=== PATIENT | female | born 1945 | race Caucasian/White ===

== ENCOUNTER 2017-12-03 18:39 | Emergency (ER) | payer MEDICARE ==
[~2017-12-03] VITALS: Ht 322.6 cm; Wt 76.2 kg
[~2017-12-03 18:39] MED LIST: AMBIEN5 MG PO; ARTHROTEC EC 71 EAC1; CALCIUM ACETAT667 M1 PO; FERROUS SULFAT324 MG PO; GABAPENTIN300 MG PO; LEXAPRO10 MG PO; MISOPROSTOL100 MCG PO; MORPHINE SULFAT30 M2 PO; NORCO 10-325 T1 EACH PO; OMEPRAZOLE40 MG PO; OXYCODONE HCL20 M1 PO; POTASSIUM CHLO10 ME1 PO; VITAMIN C1000 MG PO; VITAMIN D1000 UNI1 PO; XELODA500 MG PO
== END 2017-12-03 21:10 | disposition short-term general hospital (02) ==
LOC: ER 18:39
DX: R21 Rash and other nonspecific skin eruption (principal)

== ENCOUNTER 2017-12-03 21:32 | Emergency (ER) | payer MEDICARE ==
[~2017-12-03] VITALS: Ht 170.2 cm; Wt 76.2 kg
[2017-12-03] MEDS ORDERED: ONDANSETRON HCL INJ 2 MG/ML VIAL IV ONE (23:00)
[2017-12-03] MEDS ORDERED: VANCOMYCIN HCL 1 GM VIAL IV ONE (23:00)
[2017-12-03] MEDS ORDERED: CLINDAMYCIN PHOS 600 MG/ 4 ML VIAL IV ONE (23:00)
[2017-12-04] MEDS ORDERED: ONDANSETRON HCL INJ 2 MG/ML VIAL IV PRN (01:15)
[2017-12-04] MEDS ORDERED: CLINDAMYCIN 600MG/D5W 50ML 50 ML IV SCH (08:30)
[2017-12-04] MEDS ORDERED: VANCOMYCIN 1GM/NS 250 ML 250 ML IV SCH (11:30)
[2017-12-04 12:14] VITALS: BP 118/76
== END 2017-12-04 11:00 | disposition left against medical advice (07) ==
LOC: FSED 21:32
DX: L03.114 Cellulitis of left upper limb (principal); C41.9 Malignant neoplasm of bone and articular cartilage, unspecified; Z79.899 Other long term (current) drug therapy
CPT/HCPCS: 80053; 85025; 96374; 99283; J2405 ×2; J3370 ×2

== ENCOUNTER 2018-01-01 11:22 | Emergency (ER) | payer MEDICARE ==
[~2018-01-01] VITALS: Ht 170.2 cm; Wt 77.1 kg
--- OUTSIDE RECORDS SUMMARY | 2018-01-01 11:24 | XMS REPORT ---
Author Author [facility] Address Unknown Phone Unavailable Care Team Providers Care Physical Therapist Name Role Phone JANEE TORRES Unavailable Unavailable Problems This patient has no known problems. Allergies, Adverse Reactions, Alerts This patient has no known allergies or adverse reactions. Medications This patient has no known medications. Results Test Description Test Time Test Comments Text Results Atomic Results Result Comments CHEST SINGLE (PORTABLE) [place] [address] Patient Name: BONNY SCHREIBER MR #: [id number] : 1945 Age/Sex: 72/F Req #: [id number] [facility] Physician: JANEE TORRES MD Ordered by: OLAF VELASQUEZ MD Report #: [id number] Location: MED/SURG2 Room/Bed: [facility] Procedure: [id number] DX/CHEST SINGLE (PORTABLE) Exam Date: 07/28/17 Exam Time: 0545 REPORT STATUS: Signed EXAM: CHEST SINGLE (PORTABLE), AP 1 view DATE: 07/28/2017 5: 00 AM Time stamp on exam: 0610 hours INDICATION: CHF COMPARISON: AP view of the chest July 25, 2017 FINDINGS: LINES/TUBES: Stable position of right internal jugular vein chest port and central line. LUNGS: Slight decreased vascular congestion. Bibasilar atelectasis. PLEURA: No effusions or pneumothorax. HEART AND MEDIASTINUM: Stable mild cardiac enlargement BONES AND SOFT TISSUES: No acute findings. IMPRESSION: Slight decreased basilar congestion. Persistent bibasilar atelectasis. Signed by: Dr. Taya Mullen M.D. on 07/28/2017 6:58 AM Dictated By: TAYA MULLEN MD 7 Transcribed By: PANKAJ on 07/28/17657 COPY TO: OLAF VELASQUEZ MD CT ABDOMEN/PELVIS WO [place] [address] Patient Name: BONNY SCHREIBER MR #: [id number] : 1945 Age/Sex: 72/F Req #: [id number] Adm Physician: JANEE TORRES MD Ordered by: MIKI RIOS MD Report #: [id number] Location: MED/SURG2 Room/Bed: [facility] __ Procedure: [id number] CT/CT ABDOMEN/PELVIS WO Exam Date: Exam Time: REPORT STATUS: Signed PROCEDURE : CT ABDOMEN AND PELVIS WITHOUT CONTRAST COMPARISON: MRI lumbar spine . INDICATIONS: HYDRONEPHROSIS ON MRI; history of metastatic breast cancer TECHNIQUE: Axial CT images through the abdomen and pelvis were obtained without IV contrast. Coronal and sagittal reformations were created. FINDINGS: Lung bases: Posterior layering pleural effusions measure 3 cm on the right 2.6 cm on the left with atelectasis of the overlying lung. There is a tiny pericardial effusion. A small hiatal hernia is present. Liver: Normal attenuation without mass. The right lobe measures 20 cm in length. Spleen: Mildly enlarged. No evidence of mass. Biliary: The gallbladder is absent. There is no biliary ductal dilatation. Pancreas: Mildly atrophic without mass or ductal dilatation. Adrenal Glands: The right adrenal gland is mildly thickened. The left adrenal gland exhibits nodular thickening. Underlying adenomata cannot be excluded Kidneys: Right kidney: No hydronephrosis. A tiny calculus in the upper pole could be in the collecting system or vascular. No renal edema or perinephric inflammation. No cortical mass. Left kidney: No hydronephrosis. Fat attenuating lesion in the anterior interpolar cortex measures 9 mm suggestive of an angiomyolipoma. The collecting system is nondilated. No perinephric inflammation. Vasculature: The aorta is mildly ectatic but not dilated. Diffuse atherosclerotic calcifications are present throughout all the arterial structures. Stomach: There are postoperative changes of the stomach suggestive of gastric bypass. The excluded stomach is distended with fluid but is nondilated. No free fluid or fluid collection. Bowel: Small bowel is normal in diameter with normal wall thickness. The large bowel distended with air but is not dilated. No mural thickening or pericolonic inflammation. The cecum is low- lying in the pelvis. The appendix is not visualized. Peritoneum/ Retroperitoneum: Small amount of pelvic ascites. No loculated fluid collection. Bladder: Collapsed around a Gonzalez catheter. No ureteral dilatation. Reproductive organs: The uterus is absent. There are no adnexal masses. Musculoskeletal: Diffuse osseous metastases are stable. There are healing pathologic fractures of multiple right and left-sided ribs. Bilateral pedicle screws and vertical stabilizing bars extending from L2-S1 laminectomy. Artificial discs at L2-3, L3-4, L4-5 are stable. The hardware is intact without evidence of lucency to suggest loosening. T11 pathologic compression deformity is stable. There is height loss of the L3, L4, L5 vertebral body, similar to MRI. Soft tissues: Mild diffuse subcutaneous edema. A left anterior abdominal wall hernia contains fat and a small amount of fluid, lateral to the rectus abdominis with an aperture of 13 mm. No evidence of hernia elsewhere. CONCLUSION: 1. No evidence of hydronephrosis or hydroureter. Hydroureteronephrosis identified on MRI may have been secondary to urinary bladder dilatation. 2. Bilateral pleural effusions and small amount of pelvic ascites. Mild subcutaneous edema. 3. Mild splenomegaly. 4. No bowel obstruction or dilatation. 5. Stable osseous metastases with pathologic fractures as described above. Dictated by: Denny Holloway M.D. on 07/25/2017 at 16:29 Electronically approved by: Denny Holloway M.D. on 07/25/2017 at 16:29 Dictated By: DENNY HOLLOWAY MD 28 Transcribed By: CRYSTAL on 07/25/171628 COPY TO: MIKI RIOS MD CHEST SINGLE (PORTABLE) [place] [address] Patient Name: BONNY SCHREIBER MR #: [id number] : 1945 Age/Sex: 72/F Req #: [id number] Adm Physician: JANEE TORRES MD Ordered by: OLAF VELASQUEZ MD Report #: [id number] Location: MED/SURG2 Room/Bed: [facility] Procedure: [id number] DX/CHEST SINGLE (PORTABLE) Exam Date: 07/25/17 Exam Time: 0535 REPORT STATUS: Signed EXAM: CHEST SINGLE (PORTABLE), AP 1 view DATE: 07/25/2017 5: 00 AM Time stamp on exam: 0528 hours INDICATION: CHF COMPARISON: AP view of the chest July 24, 2017 FINDINGS: LINES/TUBES: Stable positions of right internal jugular vein central line and chest port. LUNGS: Vascular congestion and bibasilar atelectasis. PLEURA: Possible small bilateral pleural effusions. HEART AND MEDIASTINUM: Stable mild enlargement of the cardiac mediastinal silhouette and central vasculature. BONES AND SOFT TISSUES: Surgical clips left axilla. Bilateral rib fractures. IMPRESSION: Vascular congestion and bibasilar atelectasis. Signed by: Dr. Taya Mullen M.D. on 07/25/2017 6:52 AM Dictated By: TAYA MULLEN MD 1 Transcribed By: PANKAJ on 07/25/17651 COPY TO: OLAF VELASQUEZ MD US EXTREMITY RAYGOZA NON-VAS [place] [address] Patient Name: BONNY SCHREIBER MR #: [id number] : 1945 Age/Sex: 72/F Req #: [id number] Adm Physician: JANEE TORRES MD Ordered by: EMMA FLOWER MD Report #: [id number] Location: MED/SURG2 Room/Bed: [facility] Procedure: [id number] US/US EXTREMITY RAYGOZA NON-VAS Exam Date: Exam Time: REPORT STATUS: Signed PROCEDURE: EXTREMITY ULTRASOUND COMPARISON: None. INDICATIONS: R/O Abscess TECHNIQUE: Focused sonographic evaluation was performed of the left upper extremity, most concentrated in the left forearm. Nonvascular evaluation. FINDINGS: Moderate amount of edema is noted throughout the left upper extremity. No focal drainable fluid collection. No increased vascularity. No solid mass. CONCLUSION: Left upper extremity edema. No focal drainable fluid collection. Dictated by: Maricel Thorne M.D. on 07/25/2017 at 13:20 Electronically approved by: Maricel Thorne M.D. on 07/25/2017 at 13:20 Dictated By : MARICEL THORNE MD 19 Transcribed By: CRYSTAL on 07/25/171319 COPY TO: EMMA FLOWER MD US ABDOMEN COMPLETE [place] [address] Patient Name: BONNY SCHREIBER MR #: [id number] : 1945 Age/Sex: 72/F Req #: [id number] [facility] Physician: JANEE TORRES MD Ordered by: OLAF VELASQUEZ MD Report #: [id number] Location: [facility] Room/Bed: [facility] Procedure: [id number] US/US ABDOMEN COMPLETE Exam Date: 07/24/17 Exam Time: 1910 REPORT STATUS: Signed ABDOMINAL ULTRASOUND, July 24, 2017 Clinical history: Elevated LFTs. Hydronephrosis on magnetic resonance imaging. Technique: Grayscale and color Doppler ultrasound abdomen. Comparison: MRI lumbar spine July 23, 2017 Findings: The abdominal aorta and pancreas are secured. Right liver span 13 cm. Normal parenchymal echogenicity with a smooth liver margin. Portal vein diameter 1.4 cm; normal flow direction. Cholecystectomy. Common bile duct diameter 7 mm. No intrahepatic bile duct dilation. Right kidney: 11 x 4.9 x 5.1 cm Left kidney: 10.7 x 5.2 x 4.7 cm The left kidney contains a 0.8 x 0.9 x 0.9 cm hyperechoic nodule at the anterior margin without shadowing. Kidneys are otherwise unremarkable. Distended urinary bladder containing 509 mL urine. Splenic length 12.6 cm. No ascites. Small pleural effusions bilaterally. Impression: No hydronephrosis. 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 Less likely, nonobstructive stone. This report was generated with voice-recognition technology. Errors in coordinate measuring machine technician can occur. Please interpret accordingly and contact a radiologist if there are any questions regarding the report. Signed by: Dr. Tutu Ontiveros M.D. on 07/24/2017 8:56 PM Dictated By: TUTU ONTIVEROS MD 55 Transcribed By: PANKAJ on 07/24/172055 COPY TO: OLAF VELASQUEZ MD CHEST SINGLE (PORTABLE) [place] [address] Patient Name: BONNY SCHREIBER MR #: [id number] : 1945 Age/Sex: 72/F Req #: [id number] Adm Physician: KLAUS MCKEON MD Ordered by: OLAF VELASQUEZ MD Report #: [id number] Location: ICU Room/Bed: ICU [facility] Procedure: [id number] DX/CHEST SINGLE (PORTABLE) Exam Date: 07/24/17 Exam Time: 0550 REPORT STATUS: Signed EXAM: CHEST SINGLE (PORTABLE), AP 1 view DATE: 07/24/2017 5:00 AM Time stamp on exam: 0539 hours INDICATION: Shortness of breath, pleural opacities COMPARISON: AP view of the chest July 23, 2017 FINDINGS: LINES/TUBES: Stable position of right internal jugular vein central line and chest port. LUNGS: Stable bibasilar reticulonodular changes. PLEURA : No effusions or pneumothorax. HEART AND MEDIASTINUM: Normal size and contour. BONES AND SOFT TISSUES: Bilateral healing rib fractures. IMPRESSION: No significant interval change in appearance of the chest. Signed by: Dr. Taya Mullen M.D. on 07/24/2017 6:55 AM Dictated By: TAYA MULLEN MD 4 COPY TO: OLAF VELASQUEZ MD MRI SPINE LUMBAR WOW [place] [address] [place] [address] Patient Name: BONNY SCHREIBER MR #: [id number] : 1945 Age/Sex: 72/F Req #: [id number] Adm Physician: KLAUS MCKEON MD Ordered by: EMMA FLOWER MD Report #: [id number] Location: ICU Room/Bed: ICU [facility] __ Procedure: [id number] MRI/MRI SPINE LUMBAR WOW Exam Date: 07/23/17 Exam Time: 1230 REPORT STATUS: Signed Exam: Cervical, thoracic and lumbar spine MRIs without and with IV contrast History: 72-year-old female with history of breast cancer metastatic to the thoracic spine currently septic. Comparison studies: Lumbar spine MRI . Technique: Cervical spine: Pre-contrast Sagittal T2, T1 and sagittal inversion recovery, axial T1. Postcontrast axial and sagittal T1 and, axial T2. Thoracic spine: Precontrast sagittal axial T2, sagittal T1 FLAIR, sagittal STIR, coronal T2 and postcontrast sagittal axial T1 FS. Lumbar spine: Precontrast sagittal T2, sagittal and axial T1, axial oblique proton density and sagittal STIR. Post contrast sagittal and axial T1 FS and axial T2. Intravenous contrast: 10 cc of Gadavist. Findings: Limitations: Exams are limited by artifacts related to patient motion. The lumbar spine is limited by artifacts related to susceptibility artifact from metallic posterior instrumentation. Alignment: Straightened cervical curvature. Minimal thoracic kyphosis at T11 due to pathologic fracture described below. Mild hyperlordotic lumbar curvature. Thoracolumbar scoliosis , convex to the left with apex at T9-T10 with lumbar curvature convex to the right with apex at L3-L4. Cervicomedullary junction: No abnormalities. Patent foramen magnum. Soft tissues: No T2 hyperintense inflammatory changes. Paraspinal muscles: No signal abnormalities. Well-preserved. No atrophic changes Spinal cord: Normal in morphology without gross signal abnormality from the cervical medullary junction to the tip of the conus is at approximately L1.. Cauda equina: No gross masses or arachnoiditis. Vertebrae: Multiple T2/STIR hyperintense, T1 hypointense, enhancing metastatic lesions scattered throughout the vertebral bodies and posterior elements of the thoracic and lumbar spine, in the posterior C7 vertebral body as well as scattered throughout the sacrum and included iliac bones. No associated soft tissue epidural disease. Multiple fractures throughout the thoracic and lumbar spine, many of which are pathologic. Compression fracture at T5 with depression of the superior and inferior endplates results in approximately 30% height loss. A T8 compression fracture results in approximately 50% height loss. A T11 compression fracture results in approximately 40-60% height loss. An L2 superior endplate compression fracture results in approximately 30% height loss. An L3 superior endplate compression fracture results in up to 70% height loss centrally. Depression deformities at L4 and at L5 result in mild height loss. Postsurgical changes: Instrumented posterior lateral instrumented fusion and decompressive laminectomies from L2 to S1 with bilateral rods fixated via transpedicular screws from L2 to L5 and transsacral screws at S1 (cannot further evaluate hardware integrity on this exam). There are discectomy changes with interbody cage prostheses in place from L2 to L5. These changes are new from the previous lumbar spine MRI. Degenerative changes: Cervical spine: C2-C3: Disc bulge does not result in significant canal stenosis. Mild right foraminal stenosis due to uncovertebral facet arthrosis. C3-C4: Patent canal. Mild left foraminal stenosis due to uncovertebral and facet arthrosis patent canal and right foramen. C4-C5: Small disc bulge does not result in significant canal stenosis. No significant foraminal stenosis. C5-C6: Small disc bulge does not result in significant canal stenosis. Mild right foraminal stenosis due to uncovertebral arthrosis. C6-C7: Moderately degenerated disc. Disc osteophyte complex asymmetric to the left and uncovertebral arthrosis result in moderate canal and left foraminal stenosis. Mild right foraminal stenosis due to uncovertebral arthrosis. C7-T1: Disc bulge does not result in significant canal stenosis. No significant foraminal stenosis. Thoracic spine: Multilevel disc degeneration, worse/moderate from T8 through T11. Canal stenosis from T8 through T11 due to disc osteophyte complexes minimal retropulsion of the inferior T8 endplate is mild at T8-T9, moderate at T9-T10 and severe at T10-T11. Minimal retropulsion of the inferior T10 endplate with small left central disc protrusion does not result in significant canal stenosis. Foraminal stenosis on the right T8 through T11 due to disc osteophyte complexes is moderate at T8-T9 and at T10- T11 and mild at T9-T10. Lumbar spine: Evaluation is limited by artifact from metallic fixation hardware. L1-L2: Disc osteophyte complex results in mild canal stenosis and mild right foraminal stenosis. L2-L3: Disc osteophyte complex, thickened ligamenta flava and facet arthrosis result in mild canal and bilateral frontal stenosis. L3-L4: Disc osteophyte complex and facet arthrosis result in severe left and mild right foraminal stenosis. No canal stenosis L4-L5: Residual osteophyte complex and facet arthrosis result in severe left and moderate right foraminal stenosis. No canal stenosis. L5-S1: Disc osteophyte complex and facet arthrosis result in severe bilateral foraminal stenosis. Incidental findings: Moderate bilateral basilar atelectasis. Mild bilateral hydronephrosis with moderate dilatation of the bilateral ureters. IMPRESSION: Limited exam as described. In spite of limitations: Cervical, thoracic and lumbar spines: 1. No discitis-osteomyelitis. 2. Scattered osseous metastases throughout the cervical, thoracic, lumbar spine, sacrum and iliac bones. 3. Multiple compression fractures throughout the thoracic and lumbar spine, many of which are pathologic, most pronounced at T8 (50% height loss), T11 (40-60% height loss) and at L3 (70% height loss). 4. Moderate disc degeneration with mild canal stenosis and moderate left foraminal stenosis at C6-C7. 5. Canal stenosis and right foraminal stenosis from T8 through T11 due to disc osteophyte complexes and minimal retropulsion the inferior T8 endplate. Canal stenosis is severe at T10-T11. 6. Lumbar surgical changes, new since 02/2009 include: PLIF and decompression from L2 to S1 and discectomies from L2 to L5. 7. Mild degenerative canal stenosis at L1-L2 and varying degrees of moderate to severe degenerative foraminal stenosis from L3 to S1. 8. Bibasilar atelectasis with bilateral hydroureteronephrosis. Signed by: Dr. Spenser Odonnell M.D. on 07/24/2017 9:26 AM Dictated By: SPENSER ODONNELL MD 5 Transcribed By: PANKAJ on 07/24/17925 COPY TO: EMMA FLOWER MD MRI SPINE THORACIC WOW [place] [address] Patient Name: BONNY SCHREIBER MR #: [id number] : 1945 Age/Sex: 72/F Req #: [id number] Adm Physician: KLAUS MCKEON MD Ordered by: EMMA FLOWER MD Report #: [id number] Location: ICU Room/Bed: ICU [facility] __ Procedure: [id number] MRI/MRI SPINE THORACIC WOW Exam Date : 07/23/17 Exam Time: 1230 REPORT STATUS: Signed Exam: Cervical, thoracic and lumbar spine MRIs without and with IV contrast History: 72-year-old female with history of breast cancer metastatic to the thoracic spine currently septic. Comparison studies: Lumbar spine MRI 03/07/2009. Technique: Cervical spine: Pre-contrast Sagittal T2, T1 and sagittal inversion recovery, axial T1. Postcontrast axial and sagittal T1 and, axial T2. Thoracic spine: Precontrast sagittal axial T2, sagittal T1 FLAIR, sagittal STIR, coronal T2 and postcontrast sagittal axial T1 FS. Lumbar spine: Precontrast sagittal T2, sagittal and axial T1, axial oblique proton density and sagittal STIR. Post contrast sagittal and axial T1 FS and axial T2. Intravenous contrast: 10 cc of Gadavist. Findings: Limitations: Exams are limited by artifacts related to patient motion. The lumbar spine is limited by artifacts related to susceptibility artifact from metallic posterior instrumentation. Alignment: Straightened cervical curvature. Minimal thoracic kyphosis at T11 due to pathologic fracture described below. Mild hyperlordotic lumbar curvature. Thoracolumbar scoliosis , convex to the left with apex at T9-T10 with lumbar curvature convex to the right with apex at L3-L4. Cervicomedullary junction: No abnormalities. Patent foramen magnum. Soft tissues: No T2 hyperintense inflammatory changes. Paraspinal muscles: No signal abnormalities. Well-preserved. No atrophic changes Spinal cord: Normal in morphology without gross signal abnormality from the cervical medullary junction to the tip of the conus is at approximately L1.. Cauda equina: No gross masses or arachnoiditis. Vertebrae: Multiple T2/STIR hyperintense, T1 hypointense, enhancing metastatic lesions scattered throughout the vertebral bodies and posterior elements of the thoracic and lumbar spine, in the posterior C7 vertebral body as well as scattered throughout the sacrum and included iliac bones. No associated soft tissue epidural disease. Multiple fractures throughout the thoracic and lumbar spine, many of which are pathologic. Compression fracture at T5 with depression of the superior and inferior endplates results in approximately 30% height loss. A T8 compression fracture results in approximately 50% height loss. A T11 compression fracture results in approximately 40-60% height loss. An L2 superior endplate compression fracture results in approximately 30% height loss. An L3 superior endplate compression fracture results in up to 70% height loss centrally. Depression deformities at L4 and at L5 result in mild height loss. Postsurgical changes: Instrumented posterior lateral instrumented fusion and decompressive laminectomies from L2 to S1 with bilateral rods fixated via transpedicular screws from L2 to L5 and transsacral screws at S1 (cannot further evaluate hardware integrity on this exam). There are discectomy changes with interbody cage prostheses in place from L2 to L5. These changes are new from the previous lumbar spine MRI. Degenerative changes: Cervical spine: C2-C3: Disc bulge does not result in significant canal stenosis. Mild right foraminal stenosis due to uncovertebral facet arthrosis. C3-C4: Patent canal. Mild left foraminal stenosis due to uncovertebral and facet arthrosis patent canal and right foramen. C4-C5: Small disc bulge does not result in significant canal stenosis. No significant foraminal stenosis. C5-C6: Small disc bulge does not result in significant canal stenosis. Mild right foraminal stenosis due to uncovertebral arthrosis. C6-C7: Moderately degenerated disc. Disc osteophyte complex asymmetric to the left and uncovertebral arthrosis result in moderate canal and left foraminal stenosis. Mild right foraminal stenosis due to uncovertebral arthrosis. C7-T1: Disc bulge does not result in significant canal stenosis. No significant foraminal stenosis. Thoracic spine: Multilevel disc degeneration, worse/moderate from T8 through T11. Canal stenosis from T8 through T11 due to disc osteophyte complexes minimal retropulsion of the inferior T8 endplate is mild at T8-T9, moderate at T9-T10 and severe at T10-T11. Minimal retropulsion of the inferior T10 endplate with small left central disc protrusion does not result in significant canal stenosis. Foraminal stenosis on the right T8 through T11 due to disc osteophyte complexes is moderate at T8-T9 and at T10- T11 and mild at T9-T10. Lumbar spine: Evaluation is limited by artifact from metallic fixation hardware. L1-L2: Disc osteophyte complex results in mild canal stenosis and mild right foraminal stenosis. L2-L3: Disc osteophyte complex, thickened ligamenta flava and facet arthrosis result in mild canal and bilateral frontal stenosis. L3-L4: Disc osteophyte complex and facet arthrosis result in severe left and mild right foraminal stenosis. No canal stenosis L4-L5: Residual osteophyte complex and facet arthrosis result in severe left and moderate right foraminal stenosis. No canal stenosis. L5-S1: Disc osteophyte complex and facet arthrosis result in severe bilateral foraminal stenosis. Incidental findings: Moderate bilateral basilar atelectasis. Mild bilateral hydronephrosis with moderate dilatation of the bilateral ureters. IMPRESSION: Limited exam as described. In spite of limitations: Cervical, thoracic and lumbar spines: 1. No discitis-osteomyelitis. 2. Scattered osseous metastases throughout the cervical, thoracic, lumbar spine, sacrum and iliac bones. 3. Multiple compression fractures throughout the thoracic and lumbar spine, many of which are pathologic, most pronounced at T8 (50% height loss), T11 (40-60% height loss) and at L3 (70% height loss). 4. Moderate disc degeneration with mild canal stenosis and moderate left foraminal stenosis at C6-C7. 5. Canal stenosis and right foraminal stenosis from T8 through T11 due to disc osteophyte complexes and minimal retropulsion the inferior T8 endplate. Canal stenosis is severe at T10-T11. 6. Lumbar surgical changes, new since 02/2009 include: PLIF and decompression from L2 to S1 and discectomies from L2 to L5. 7. Mild degenerative canal stenosis at L1-L2 and varying degrees of moderate to severe degenerative foraminal stenosis from L3 to S1. 8. Bibasilar atelectasis with bilateral hydroureteronephrosis. Signed by: Dr. Spenser Odonnell M.D. on 07/24/2017 9:26 AM Dictated By: SPENSER ODONNELL MD 5 Transcribed By: PANKAJ on 07/24/17925 COPY TO: EMMA FLOWER MD MRI SPINE CERVICAL WOW [place] [address] Patient Name: BONNY SCHREIBER MR #: [id number] : 1945 Age/Sex: 72/F Req #: [id number] Adm Physician: KLAUS MCKEON MD Ordered by: EMMA FLOWER MD Report #: [id number] Location: ICU Room/Bed: ICU [facility] __ Procedure: [id number] MRI/MRI SPINE CERVICAL WOW Exam Date : 07/23/17 Exam Time: 1230 REPORT STATUS: Signed Exam: Cervical, thoracic and lumbar spine MRIs without and with IV contrast History: 72-year-old female with history of breast cancer metastatic to the thoracic spine currently septic. Comparison studies: Lumbar spine MRI 03/07/2009. Technique: Cervical spine: Pre-contrast Sagittal T2, T1 and sagittal inversion recovery, axial T1. Postcontrast axial and sagittal T1 and, axial T2. Thoracic spine: Precontrast sagittal axial T2, sagittal T1 FLAIR, sagittal STIR, coronal T2 and postcontrast sagittal axial T1 FS. Lumbar spine: Precontrast sagittal T2, sagittal and axial T1, axial oblique proton density and sagittal STIR. Post contrast sagittal and axial T1 FS and axial T2. Intravenous contrast: 10 cc of Gadavist. Findings: Limitations: Exams are limited by artifacts related to patient motion. The lumbar spine is limited by artifacts related to susceptibility artifact from metallic posterior instrumentation. Alignment: Straightened cervical curvature. Minimal thoracic kyphosis at T11 due to pathologic fracture described below. Mild hyperlordotic lumbar curvature. Thoracolumbar scoliosis , convex to the left with apex at T9-T10 with lumbar curvature convex to the right with apex at L3-L4. Cervicomedullary junction: No abnormalities. Patent foramen magnum. Soft tissues: No T2 hyperintense inflammatory changes. Paraspinal muscles: No signal abnormalities. Well-preserved. No atrophic changes Spinal cord: Normal in morphology without gross signal abnormality from the cervical medullary junction to the tip of the conus is at approximately L1.. Cauda equina: No gross masses or arachnoiditis. Vertebrae: Multiple T2/STIR hyperintense, T1 hypointense, enhancing metastatic lesions scattered throughout the vertebral bodies and posterior elements of the thoracic and lumbar spine, in the posterior C7 vertebral body as well as scattered throughout the sacrum and included iliac bones. No associated soft tissue epidural disease. Multiple fractures throughout the thoracic and lumbar spine, many of which are pathologic. Compression fracture at T5 with depression of the superior and inferior endplates results in approximately 30% height loss. A T8 compression fracture results in approximately 50% height loss. A T11 compression fracture results in approximately 40-60% height loss. An L2 superior endplate compression fracture results in approximately 30% height loss. An L3 superior endplate compression fracture results in up to 70% height loss centrally. Depression deformities at L4 and at L5 result in mild height loss. Postsurgical changes: Instrumented posterior lateral instrumented fusion and decompressive laminectomies from L2 to S1 with bilateral rods fixated via transpedicular screws from L2 to L5 and transsacral screws at S1 (cannot further evaluate hardware integrity on this exam). There are discectomy changes with interbody cage prostheses in place from L2 to L5. These changes are new from the previous lumbar spine MRI. Degenerative changes: Cervical spine: C2-C3: Disc bulge does not result in significant canal stenosis. Mild right foraminal stenosis due to uncovertebral facet arthrosis. C3-C4: Patent canal. Mild left foraminal stenosis due to uncovertebral and facet arthrosis patent canal and right foramen. C4-C5: Small disc bulge does not result in significant canal stenosis. No significant foraminal stenosis. C5-C6: Small disc bulge does not result in significant canal stenosis. Mild right foraminal stenosis due to uncovertebral arthrosis. C6-C7: Moderately degenerated disc. Disc osteophyte complex asymmetric to the left and uncovertebral arthrosis result in moderate canal and left foraminal stenosis. Mild right foraminal stenosis due to uncovertebral arthrosis. C7-T1: Disc bulge does not result in significant canal stenosis. No significant foraminal stenosis. Thoracic spine: Multilevel disc degeneration, worse/moderate from T8 through T11. Canal stenosis from T8 through T11 due to disc osteophyte complexes minimal retropulsion of the inferior T8 endplate is mild at T8-T9, moderate at T9-T10 and severe at T10-T11. Minimal retropulsion of the inferior T10 endplate with small left central disc protrusion does not result in significant canal stenosis. Foraminal stenosis on the right T8 through T11 due to disc osteophyte complexes is moderate at T8-T9 and at T10- T11 and mild at T9-T10. Lumbar spine: Evaluation is limited by artifact from metallic fixation hardware. L1-L2: Disc osteophyte complex results in mild canal stenosis and mild right foraminal stenosis. L2-L3: Disc osteophyte complex, thickened ligamenta flava and facet arthrosis result in mild canal and bilateral frontal stenosis. L3-L4: Disc osteophyte complex and facet arthrosis result in severe left and mild right foraminal stenosis. No canal stenosis L4-L5: Residual osteophyte complex and facet arthrosis result in severe left and moderate right foraminal stenosis. No canal stenosis. L5-S1: Disc osteophyte complex and facet arthrosis result in severe bilateral foraminal stenosis. Incidental findings: Moderate bilateral basilar atelectasis. Mild bilateral hydronephrosis with moderate dilatation of the bilateral ureters. IMPRESSION: Limited exam as described. In spite of limitations: Cervical, thoracic and lumbar spines: 1. No discitis-osteomyelitis. 2. Scattered osseous metastases throughout the cervical, thoracic, lumbar spine, sacrum and iliac bones. 3. Multiple compression fractures throughout the thoracic and lumbar spine, many of which are pathologic, most pronounced at T8 (50% height loss), T11 (40-60% height loss) and at L3 (70% height loss). 4. Moderate disc degeneration with mild canal stenosis and moderate left foraminal stenosis at C6-C7. 5. Canal stenosis and right foraminal stenosis from T8 through T11 due to disc osteophyte complexes and minimal retropulsion the inferior T8 endplate. Canal stenosis is severe at T10-T11. 6. Lumbar surgical changes, new since 02/2009 include: PLIF and decompression from L2 to S1 and discectomies from L2 to L5. 7. Mild degenerative canal stenosis at L1-L2 and varying degrees of moderate to severe degenerative foraminal stenosis from L3 to S1. 8. Bibasilar atelectasis with bilateral hydroureteronephrosis. Signed by: Dr. Spenser Odonnell M.D. on 07/24/2017 9:26 AM Dictated By: SPENSER ODONNELL MD 5 Transcribed By: PANKAJ on 07/24/17925 COPY TO: EMMA FLOWER MD CHEST [facility] (PORTABLE) [place] [address] Patient Name: BONNY SCHREIBER MR #: [id number] : 1945 Age/Sex: 72/F Req #: [id number] Adm Physician: KLAUS MCKEON MD Ordered by: OLAF VELASQUEZ MD Report #: [id number] Location: ICU Room/Bed: ICU 190 Procedure: [id number] DX/CHEST SINGLE (PORTABLE) Exam Date: 07/23/17 Exam Time: 0440 REPORT STATUS: Signed EXAM: CHEST SINGLE (PORTABLE), AP 1 view DATE: 07/23/2017 5:00 AM Time stamp on exam: 0455 hours INDICATION: Sepsis COMPARISON: AP view of the chest July 21, 2017 at 2012 hours FINDINGS: LINES/TUBES: Stable position of right internal jugular vein chest port. Interval placement of right central line with tip in the expected location of the atrial caval junction. LUNGS: Nonspecific bilateral reticulonodular changes, new since prior exam. PLEURA: No effusions or pneumothorax. HEART AND MEDIASTINUM: Normal size and contour. BONES AND SOFT TISSUES: Chronic- appearing bilateral rib fractures. Left axillary surgical clips. IMPRESSION: Nonspecific bilateral reticulonodular changes. This could represent atypical infection or interstitial edema. Signed by: Dr. Taya Mullen M.D. on 07/23/2017 5:57 AM Dictated By: TAYA MULLEN MD 6 Transcribed By : PANKAJ on 07/23/17556 COPY TO: OLAF VELASQUEZ MD FLUORO GUIDANCE [address] [address] Patient Name: BONNY SCHREIBER MR #: [id number] : 1945 Age/Sex: 72/F Req #: [id number] Adm Physician: KLAUS MCKEON MD Ordered by: KLAUS MCKEON MD Report #: [id number] Location: ICU Room/Bed: ICU 190 _ Procedure: [id number] DX/FLUORO GUIDANCE [address]/REM Exam Date: 07/22/17 Exam Time: 2104 REPORT STATUS: Signed PROCEDURE: FLUORO GUIDANCE [address]/REM COMPARISON: None. INDICATIONS: Patient who is hypotensive and in need of large bore central venous access. FINDINGS: Preliminary ultrasound of the right neck was performed showing patency of the right internal jugular vein. A Port-A-Cath is noted within the vein also. Sterile preparation was accomplished. Local anesthesia with 1% Lidocaine was performed and puncture of the right internal jugular vein with a 21 gauge micropuncture needle was accomplished with placement of a 0.018 inch wire. A micropuncture sheath was then placed followed by a 0.035 inch Amplatz superstiff wire. Under fluoroscopic guidance the wire was positioned into the IVC. Dilatation with a 7 Portuguese dilator was accomplished and a 7 Portuguese Arrow triple-lumen 15 cm long central line was placed. Tip of the catheter localized to the cavoatrial junction. Patient tolerated procedure well without complications. Fluoroscopy time: 0.7 minutes Total dose: 2.65 mGy CONCLUSION: 1. Successful placement of a triple-lumen central line utilizing ultrasound for vascular access and fluoroscopy for guidance. 2. The line is okay for immediate use. Brandan Brunson D.O. Dictated by: Brandan Brunson D.O. on 07/23/2017 at 7:08 Electronically approved by : Brandan Brunson D.O. on 07/23/2017 at 7:08 Dictated By: BRANDAN BRUNSON DO 7 Transcribed By: CRYSTAL on 07/23/17 0708 COPY TO: KLAUS MCKEON MD NON-TUNNELLED CVC [facility] [place] [address] Patient Name: BONNY SCHREIBER MR #: [id number] : 1945 Age/Sex: 72/F Req #: [id number] Adm Physician: JANEE TORRES MD Ordered by: LKAUS MCKEON MD Report #: [id number] Location: MED/SURG2 Room/Bed: [facility] Procedure: IR/NON-TUNNELLED CVC CATH PLACMNT Exam Date: 07/22/17 Exam Time: 2104 REPORT STATUS: Signed PROCEDURE: FLUORO GUIDANCE [address]/REM COMPARISON: None. INDICATIONS: Patient who is hypotensive and in need of large bore central venous access. FINDINGS: Preliminary ultrasound of the right neck was performed showing patency of the right internal jugular vein. A Port-A-Cath is noted within the vein also. Sterile preparation was accomplished. Local anesthesia with 1% Lidocaine was performed and puncture of the right internal jugular vein with a 21 gauge micropuncture needle was accomplished with placement of a 0.018 inch wire. A micropuncture sheath was then placed followed by a 0.035 inch Amplatz superstiff wire. Under fluoroscopic guidance the wire was positioned into the IVC. Dilatation with a 7 Portuguese dilator was accomplished and a 7 Portuguese Arrow triple-lumen 15 cm long central line was placed. Tip of the catheter localized to the cavoatrial junction. Patient tolerated procedure well without complications. Fluoroscopy time: 0.7 minutes Total dose: 2.65 mGy CONCLUSION: 1. Successful placement of a triple-lumen central line utilizing ultrasound for vascular access and fluoroscopy for guidance. 2. The line is okay for immediate use. Brandan Brunson D.O. Dictated by: Brandan Brunson D.O. on 07/23/2017 at 7:08 Electronically approved by : Brandna Brunson D.O. on 07/23/2017 at 7:08 Dictated By: BRANDAN BRUNSON DO 7 Transcribed By: CRYSTAL on 07/23/17707 COPY TO: KLAUS MCKEON MD [facility] (PORTABLE) [place] [address] Patient Name: BONNY SCHREIBER MR #: [id number] : 1945 Age/Sex: 72/F Req #: [id number] [facility] Physician: Ordered by: ISAIAH BAKER MD Report #: [id number] Location: ER Room/Bed: Procedure: [id number] DX/CHEST SINGLE (PORTABLE) Exam Date: 07/21/17 Exam Time: 2019 REPORT STATUS: Signed EXAM: CHEST SINGLE (PORTABLE), AP 1 view DATE: 07/21/2017 8:05 PM Time stamp on exam: 2011 INDICATION: Left arm red and hurting COMPARISON: None FINDINGS: LINES/TUBES: Right internal jugular vein chest port terminates at expected location of the proximal right atrium. LUNGS: No consolidations or edema. PLEURA: No effusions or pneumothorax. HEART AND MEDIASTINUM : Normal size and contour. BONES AND SOFT TISSUES: Multiple old bilateral rib fractures. Left axillary surgical clips. IMPRESSION: No acute thoracic abnormality. Signed by: Dr. Taya Mullen M.D. on 2016 9:39 PM Dictated By: TAYA MULLEN MD 38 Transcribed By: PANKAJ on 07/21/172138 COPY TO: ISAIAH BAKER MD
--- OUTSIDE RECORDS SUMMARY | 2018-01-01 11:24 | XMS REPORT | Clinical Summary ---
Author Author [facility] Address Unknown Phone Unavailable Care Team Providers Care Nursing Care Attendant Name Role Phone Devi Box PCP Unavailable Allergies No Known Allergies Current Medications Prescription Sig. Disp. Refills Start End Date Status Date diclofenac (VOLTAREN) 75 Take 75 mg by mouth 2 Active MG EC tablet (two) times a day. misoprostol (CYTOTEC) 200 Take 200 mcg by mouth 2 Active MCG tablet (two) times a day. omeprazole (PriLOSEC) 20 Take 20 mg by mouth Active MG capsule daily. escitalopram (LEXAPRO) 10 Take 10 mg by mouth Active MG tablet daily. gabapentin (NEURONTIN) Take 600 mg by mouth 2 Active 600 MG tablet (two) times a day. zolpidem (AMBIEN) 5 MG Take 5 mg by mouth Active tablet nightly as needed for sleep. palbociclib 100 mg Take 1 capsule by mouth Active capsule nightly. letrozole (FEMARA) 2.5 mg Take 2.5 mg by mouth Active chemo tablet nightly. calcium carbonate oyster Take 1 tablet by mouth 2 Active shell (OS-FLOR) 500 mg (two) times a day. calcium (1,250 mg) tablet ZOLEDRONIC ACID (ZOMETA Infuse into a venous Active IV) catheter every 30 (thirty) days. morPHINE (MS CONTIN) 15 Take 15 mg by mouth 2 Active MG 12 hr tablet (two) times a day. HYDROcodone-acetaminophen Take 1 tablet by mouth Active (NORCO 10-325) 10-325 mg every 4 (four) hours as per tablet needed for moderate pain. ferrous fumarate Take 18 mg by mouth daily Active (LINSEY-SEQUELS) 55 mg (18 with breakfast. mg iron) CR tablet cholecalciferol, vitamin Take 1,000 Units by mouth Active D3, (VITAMIN D3) 1,000 daily. unit tablet Active Problems Problem Noted Date Breast cancer metastasized to bone 06/21/2016 Cervical cancer 06/21/2016 Family History Medical History Relation Name Comments Cancer Father Cancer Mother Relation Name Status Comments Father breast cancer Mother cervical and breast Social History Tobacco Use Types Packs/Day Years Used Date Former Smoker Comments: " Quit 06/20/2005" Alcohol Use Drinks/Week oz/Week Comments No Sex Assigned at Date Recorded Not on file Last Filed Vital Signs Not on file Plan of Treatment Health Maintenance Due Date Last Done Comments COLONOSCOPY 1996 MAMMOGRAM 1996 ZOSTER VACCINE 2006 PNEUMOCOCCAL 2011 POLYSACCHARIDE VACCINE AGE 65 AND OVER PNEUMOCOCCAL-13 2011 INFLUENZA VACCINE 06/10/2017 Results Not on fileafter 12/31/2016 Insurance Payer Benefit Subscriber ID Type Phone Address Plan / Group UHC MEDICARE AARP xxxxxxxxx HMO MEDICARE COMPLETE [facility] [address] [place] [address]
[2018-01-01 14:01] VITALS: BP 126/74
== END 2018-01-01 12:20 | disposition home or self-care (01) ==
LOC: FSED 11:22
DX: S01.81XA Laceration without foreign body of other part of head, initial encounter (principal); W19.XXXA Unspecified fall, initial encounter; Y92.009 Unspecified place in unspecified non-institutional (private) residence as the place of occurrence of the external cause
CPT/HCPCS: 99282

== ENCOUNTER 2018-01-09 13:16 | Emergency (ER) | payer MEDICARE ==
[~2018-01-09] VITALS: Ht 170.2 cm; Wt 76.2 kg
--- OUTSIDE RECORDS SUMMARY | 2018-01-09 13:19 | XMS REPORT | Clinical Summary ---
Author Author [facility] Address Unknown Phone Unavailable Care Team Providers Care Litigator Name Role Phone Devi Box PCP Unavailable [...] INFLUENZA VACCINE 06/10/2017 Results Not on fileafter 01/08/2017 Insurance Payer Benefit Subscriber ID Type Phone Address Plan / Group UHC MEDICARE AARP xxxxxxxxx HMO MEDICARE COMPLETE [facility] [address] [place] [address]
--- OUTSIDE RECORDS SUMMARY | 2018-01-09 13:19 | XMS REPORT | Continuity of Care Document ---
Author Author [facility] Organization [facility] Address [address] [place] [address] Phone Unavailable Care Team Providers Care Form Press Operator Name Role Phone WAQAR LANE DO PCP Insurance Providers Guarantor Bonny Farias Address [address] [address] Email [email or web address] Payer [employer] Medicare Complete Policy Number [id number] Subscriber's Name Bonny Farias Relationship 18 Self / Same As Patient Group Number [id number] Group Name RETIRED Effective Date 16 Advance Directives Directive Response Recorded Date/Time Does the patient have an advance directive? No 07/22/17 1:05pm If yes, is advance directive on file with [facility]? No 07/22/17 1:05pm If not on file with [facility] will patient provide a copy? No 01/01/18 11:35am Do you have a Directive to Physician? No 01/01/18 11:35am Do you have a Medical Power of Corner Block Cutter? No 01/01/18 11:35am Do you have an out of hospital Do Not Resuscitate Order? No 01/01/18 11:35am Do you have any special needs we should be aware of? No 02/22/18 11:35am Do you have a support person here with you today? No 01/01/18 11:35am Did patient receive Notice of Privacy Practices? Yes 01/01/18 11:35am Did patient receive patient rights and responsibilities? Yes 01/01/18 11:35am Problems Medical Problem Onset Date Status Cellulitis Unknown Sepsis Unknown Medications Current Home Medications Medication Dose Units Route Directions Days Qty Instructions Start Date Ascorbic Acid (Vitamin C) 1,000 Mg Tablet 1,000 Mg Oral Twice A Day Calcium Acetate 667 Mg Capsule 600 Mg Oral Twice A Day Capecitabine (Xeloda) 500 Mg Tablet 4 Tab Oral Twice A Day Cholecalciferol (Vitamin D3) (Vitamin D) 1,000 Unit Tablet 2,000 Unit Oral Daily 30 Tab Diclofenac Sodium/Misoprostol (Arthrotec Ec 75 Tablet) 1 Each Tablet.dr Twice A Day Escitalopram Oxalate (Lexapro) 10 Mg Tablet 10 Mg Oral Daily 30 Tab Ferrous Sulfate 324 Mg Tablet.dr 65 Mg Oral Daily Gabapentin 300 Mg Capsule 600 Mg Oral Twice A Day 60 Cap Hydrocodone Bit/Acetaminophen ([place] 10-325 Tablet) 1 Each Tablet 1 Tab Oral Every 4 Hours Misoprostol 100 Mcg Tab 200 Mg Oral Twice A Day Morphine Sulfate (Morphine Sulfate Er) 30 Mg Tablet.er 30 Mg Oral Twice A Day Omeprazole 40 Mg Capsule.dr 20 Mg Oral Daily Oxycodone Hcl 20 Mg Tablet 10 Mg Oral Every 4 Hours as needed for Pain Potassium Chloride 10 Meq Tab.er.prt 99 Mg Oral Daily Zolpidem Tartrate (Ambien) 5 Mg Tablet 5 Mg Oral Bedtime as needed for Sleep 30 Tab Social History Social History Problem Response Recorded Date/Time Onset Date Status Hx Psychiatric Problems Yes 07/22/2017 1:05pm Not Applicable Not Applicable Hx Eating Disorder No 07/22/2017 1:05pm Not Applicable Not Applicable Hx Substance Use Disorder No 07/22/2017 1:05pm Not Applicable Not Applicable Hx Depression Yes 07/22/2017 1:05pm Not Applicable Not Applicable Hx Alcohol Use No 07/22/2017 1:05pm Not Applicable Not Applicable Hx Substance Use Treatment No 07/22/2017 1:05pm Not Applicable Not Applicable Hx Physical Abuse No 07/22/2017 1:05pm Not Applicable Not Applicable Smoking Status Start Date Stop Date Never Smoker Hospital Discharge Instructions No hospital discharge instruction information available. Plan of Care Discharge Date 02/22/18 12:20pm Disposition HOME, SELF-CARE Condition at Discharge Stable Instructions/Education Provided Laceration Fall Prevention Prescriptions See Medication Section Referrals WAQAR LANE DO Address: [address] [place] [id number] Additional Instructions/Education 1) Return for worsening changes or for any concerns. 2) Tylenol as needed. 3) Wound check and discuss falls with your primary doctor in 2 days. Functional Status No functional status information available. Allergies, Adverse Reactions, Alerts No known allergies. Immunizations No immunization information available. Vital Signs Acute Vital Signs Vital Response Date/Time Temperature (Fahrenheit) 97.8 degrees F (97.6 - 99.5) 12/04/2017 12:14pm Pulse Pulse Rate (adult) 68 bpm (60 - 90) 01/01/2018 2:01pm Respiratory Rate 16 bpm (12 - 24) 01/01/2018 2:01pm Blood Pressure 126/74 mm Hg 01/01/2018 2:01pm Height 5 ft 7 in 01/01/2018 11:30am Weight 170 lb 01/01/2018 11:30am Body Mass Index 26.6 kg/m^2 01/01/2018 11:30am Results Laboratory Results Test Name Result Units Flags Reference Collection Date/Time Result Date/ Time Comments White Blood Count 7.70 x10e3/uL # 4.8-10.8 07/28/2017 5:49am 07/28/2017 6 :25am Red Blood Count 3.88 x10e6/uL # 3.6-5.1 07/28/2017 5:49am 07/28/2017 6: 25am Hemoglobin 11.3 g/dL L 12.0-16.0 07/28/2017 5:49am 07/28/2017 6:25am Hematocrit 34.0 % L 34.2-44.1 07/28/2017 5:49am 07/28/2017 6:25am Mean Corpuscular Volume 87.6 fL # 81-99 07/28/2017 5:49am 07/28/2017 6: 25am Mean Corpuscular Hemoglobin 29.1 pg 28-32 07/28/2017 5:49am 07/28/2017 6:25am Mean Corpuscular Hemoglobin Concent 33.2 g/dL 31-35 07/28/2017 5:4907/28/2017 6:25am Red Cell Distribution Width 12.1 % # 11.7-14.4 07/28/2017 5:492016 6:25am Platelet Count 273 x10e3/uL 140-360 07/28/2017 5:4907/28/2017 6: 25am Neutrophils (%) (Auto) 78.8 % 38.7-80.0 07/28/2017 5:4907/28/2017 6: 25am Lymphocytes (%) (Auto) 10.9 % L 18.0-39.1 07/28/2017 5:4907/28/2017 6 :25am Monocytes (%) (Auto) 7.0 % 4.4-11.3 07/28/2017 5:4907/28/2017 6: 25am Eosinophils (%) (Auto) 2.6 % 0.0-6.0 07/28/2017 5:4907/28/2017 6: 25am Basophils (%) (Auto) 0.4 % 0.0-1.0 07/28/2017 5:4907/28/2017 6:25am IM GRANULOCYTES % 0.3 % 0.0-1.0 07/28/2017 5:4907/28/2017 6:25am Neutrophils # (Auto) 6.1 2.1-6.9 07/28/2017 5:4907/28/2017 6:25am Lymphocytes # (Auto) 0.8 L 1.0-3.2 07/28/2017 5:4907/28/2017 6: 25am Monocytes # (Auto) 0.5 0.2-0.8 07/28/2017 5:4907/28/2017 6:25am Eosinophils # (Auto) 0.2 0.0-0.4 07/28/2017 5:4907/28/2017 6:25am Basophils # (Auto) 0.0 0.0-0.1 07/28/2017 5:4907/28/2017 6:25am Absolute Immature Granulocyte (auto 0.02 x10e3/uL 0-0.1 07/28/2017 5: 4907/28/2017 6:25am Differential Total Cells Counted 100 07/27/2017 6:00am 07/27/2017 10:38am Neutrophils % (Manual) 70 % 40-74 07/27/2017 6:00am 07/27/2017 10:38am Band Neutrophils % 3 % 07/24/2017 4:30am 07/24/2017 4:58am Lymphocytes % (Manual) 16 % L 19-48 07/27/2017 6:00am 07/27/2017 10: 38am Monocytes % (Manual) 11 % H 3.4-9.0 07/27/2017 6:00am 07/27/2017 10: 38am Eosinophils % (Manual) 3 % 0-7 07/27/2017 6:00am 07/27/2017 10:38am Basophils % (Manual) 3 % H 0-1.5 07/21/2017 8:13pm 07/21/2017 10:14pm Platelet Estimate SLIGHTLY DECREASED 07/27/2017 6:00am 07/27/2017 10:38am Platelet Morphology Comment NORMAL 07/27/2017 6:00am 07/27/2017 10: 38am Anisocytosis SLIGHT 07/27/2017 6:00am 07/27/2017 10:38am Red Cell Morphology Comment NORMAL 07/27/2017 6:00am 07/27/2017 10: 38am Prothrombin Time 13.5 seconds 11.9-14.5 07/21/2017 8:13pm 07/21/2017 9: 35pm Prothromb Time International Ratio 0.98 07/21/2017 8:13pm 2016 9:35pm Oral Anticoagulant Therapy INR Values: 1. Low Intensity Therapy 1.5 - 2.0 2. Moderate Intensity Therapy 2.0 - 3.0 3. High Intensity Therapy(1) 2.5 - 3.5 4. High Intensity Therapy(2) 3.0 - 4.0 5. Panic Value INR > 5.0 Activated Partial Thromboplast Time 22.2 seconds L 23.8-35.5 07/21/2017 8 :13pm 07/21/2017 9:35pm Urine Color YELLOW YELLOW 07/21/2017 8:10pm 07/21/2017 9:24pm Urine Clarity SL CLOUDY CLEAR 07/21/2017 8:10pm 07/21/2017 9:24pm Urine Specific [place] 1.015 1.010-1.025 07/21/2017 8:102016 9:24pm Urine pH 5 5 - 7 07/21/2017 8:1007/21/2017 9:24pm Urine Leukocyte Esterase NEGATIVE NEGATIVE 07/21/2017 8:102016 9:24pm Urine Nitrite NEGATIVE NEGATIVE 07/21/2017 8:1007/21/2017 9:24pm Urine Protein 1+ H NEGATIVE 07/21/2017 8:1007/21/2017 9:24pm Urine Glucose (UA) NEGATIVE NEGATIVE 07/21/2017 8:1007/21/2017 9: 24pm Urine Ketones TRACE H NEGATIVE 07/21/2017 8:1007/21/2017 9:24pm Urine Urobilinogen 0.2 mg/dL 0.2 - 1 07/21/2017 8:1007/21/2017 9: 24pm Urine Bilirubin 1+ H NEGATIVE 07/21/2017 8:1007/21/2017 9:24pm Urine Blood NEGATIVE NEGATIVE 07/21/2017 8:1007/21/2017 9:24pm Urine WBC 6-10 /HPF H 0-5 07/21/2017 8:1007/21/2017 10:17pm Urine RBC 0-5 /HPF 0-5 07/21/2017 8:1007/21/2017 10:17pm Urine Bacteria RARE /HPF NONE 07/21/2017 8:1007/21/2017 10:17pm Urine Epithelial Cells FEW /LPF NONE 07/21/2017 8:1007/21/2017 10: 17pm Sodium Level 140 mmol/L 136-145 07/28/2017 5:49am 07/28/2017 6:47am Potassium Level 4.2 mmol/L # 3.5-5.1 07/28/2017 5:49am 07/28/2017 6:47am Chloride Level 104 mmol/L 98-107 07/28/2017 5:49am 07/28/2017 6:47am Carbon Dioxide Level 29 mmol/L 22-07/28/2017 5:49am 07/28/2017 6: 47am Anion Gap 11.2 mmol/L 8-16 07/28/2017 5:49am 07/28/2017 6:47am Blood Urea Nitrogen 18 mg/dL # 7-26 07/28/2017 5:49am 07/28/2017 6:47am Creatinine 0.74 mg/dL 0.57-1.11 07/28/2017 5:49am 07/28/2017 6:47am BUN/Creatinine Ratio 24 6-25 07/28/2017 5:49am 07/28/2017 6:47am Estimat Glomerular Filtration Rate > 60 ML/MIN 60- 07/28/2017 5:49am 6:47am Ranges were taken from the National Kidney Disease Education Program and the National Kid[employer] Foundation literature. Reference ranges: 60 or greater: Normal 16-59 (for 3 consecutive months): Chronic kidney disease 15 or less: Kidney failure Glucose Level 92 mg/dL 74-118 07/28/2017 5:49am 07/28/2017 6:47am Calcium Level 9.2 mg/dL 8.4-10.2 07/28/2017 5:49am 07/28/2017 6:47am Lactic Acid Level 6.9 MG/DL 4.5-19.8 07/23/2017 5:55am 07/23/2017 6: 35am Magnesium Level 2.0 MG/DL 1.3-2.1 07/28/2017 5:49am 07/28/2017 6:47am Total Bilirubin 0.4 mg/dL 0.2-1.2 07/27/2017 6:00am 07/27/2017 8:03am Aspartate Amino Transf (AST/SGOT) 19 IU/L 5-34 07/27/2017 6:00am 2016 8:03am Alanine Aminotransferase (ALT/SGPT) 17 IU/L 0-55 07/27/2017 6:00am 8:03am Total Protein 4.6 g/dL L 6.5-8.1 07/27/2017 6:00am 07/27/2017 8:03am Albumin 1.9 g/dL L 3.5-5.0 07/27/2017 6:00am 07/27/2017 8:03am Globulin 2.7 g/dL 2.3-3.5 07/27/2017 6:00am 07/27/2017 8:03am Albumin/Globulin Ratio 0.7 L 0.8-2.0 07/27/2017 6:00am 07/27/2017 8: 03am Alkaline Phosphatase 90 IU/L 40-150 07/27/2017 6:00am 07/27/2017 8: 03am Creatine Kinase 136 IU/L # 29-168 07/22/2017 12:34pm 07/22/2017 1:05pm Creatine Kinase MB 3.80 ng/mL 0.00-5.00 07/22/2017 12:34pm 07/22/2017 1 :05pm Troponin I 0.014 ng/mL 0-0.300 07/22/2017 12:34pm 07/22/2017 1:05pm Random Vancomycin Level 11.3 ug/mL 07/25/2017 1:30am 07/25/2017 1: 58am Vancomycin Level Trough 20.8 ug/mL *H 5.0-10.0 07/24/2017 8:25am 2016 9:21am Results called to JOAN PIMENTEL at 0919 on 07/24/17 by Jessica Mane. RB OK. Immunoglobulin A 116 mg/dL 64-422 07/29/2017 6:30am 07/30/2017 2:17pm Immunoglobulin G 910 mg/dL 700-1600 07/29/2017 6:30am 07/30/2017 2: 17pm Immunoglobulin M 44 mg/dL 26-217 07/29/2017 6:30am 07/30/2017 2:17pm Performed at: [address] [id number] Textile Coating Machine Operator: Guicho Murphy MD, Phone: [phone] Stool Occult Blood NEGATIVE NEGATIVE 07/23/2017 11:15am 07/23/2017 1: 00pm Clostridium Difficile Toxin A & B NEGATIVE NEGATIVE 07/28/2017 12: 30pm 07/29/2017 3:03pm Testing on stool aspirate specimens is outside zipper sewing machine operator claims since specimen type not validated on this assay. Microbiology Results Procedure Source Organism/Result Collection Date/Time Result Date/Time Result Status Blood Culture Blood STREPTOCOCCUS PYOGENES GRP A 07/21/2017 8:13pm 2016 4:43pm Final Blood Culture Blood NO GROWTH AFTER 5 DAYS, FINAL REPORT 07/25/2017 1:30am 07/30/2017 1:39am Final Procedures Procedure Status Date Provider(s) INSERTION OF INFUSION DEV INTO SUP VENA CAVA, PERC APPROACH Completed KLAUS MCKEON MD Magnetic resonance imaging of cervical spine without then with contrast Active 07/23/17 EMMA FLOWER MD Magnetic resonance imaging of lumbar spine without then with contrast Active 07/23/17 EMMA FLOWER MD Magnetic resonance imaging of thoracic spine without then with contrast Active 07/23/17 EMMA FLOWER MD US abdomen complete Active 07/24/17 OLAF VELASQUEZ MD Limited non-vascular ultrasound of extremity Active 07/25/[address] of abdomen and pelvis without contrast Active 07/25/17 MIKI RIOS MD Encounters Encounter Location Arrival/Admit Date Discharge/Depart Date Attending Provider Departed [facility] 01/01/18 11:22am 01/01 12:20pm PRISCILLA ROSADO MD Departed Emergency [facility] 12/03/17 9:32pm 11:00am PRISCILLA MARINO MD [facility]arted Emergency [facility] 12/03/17 6:39pm 9:10pm KRYSTIN MCRAE MD Discharged [facility]patient [facility] 07/21/17 11:00pm 12:25pm JANEE TORRES MD
== END 2018-01-09 15:27 | disposition home or self-care (01) ==
LOC: FSED 13:16
DX: S01.81XA Laceration without foreign body of other part of head, initial encounter (principal); W01.0XXA Fall on same level from slipping, tripping and stumbling without subsequent striking against object, initial encounter; Y92.008 Other place in unspecified non-institutional (private) residence as the place of occurrence of the external cause; M21.371 Foot drop, right foot; Z85.3 Personal history of malignant neoplasm of breast; Z85.830 Personal history of malignant neoplasm of bone; Z79.899 Other long term (current) drug therapy
CPT/HCPCS: 99284

== ENCOUNTER → 2018-05-29 | Day surgery (SDC) | payer MEDICARE ==
[~2018-05-29] MED LIST changes: +CEFTRIAXONE SOD 1 GM VIAL ONE; +DEXAMETHASONE SOD PHOS INJ 4 MG/ML VIAL ONE; +EXEMESTANE25 MG; +FENTANYL CITRATE/PF 100MCG/2 ML INJ ONE; +IRON; +LIDOCAINE HCL 2% LOCAL INJ 5 ML SDV VIAL INJ ONE; +ONDANSETRON HCL INJ 2 MG/ML VIAL ONE; +POTASSIUM CHLO20 ME1; +PROPOFOL IV EMULSION 10 MG/ML 20 ML VIAL ONE; +SEVOFLURANE INHAL SOLN 250 ML PEN BTL ONE; +VITAMIN B-121000 MCG PO; +[UNRECOGNIZED DRUG - OTHER]
--- NOTE | 2018-05-29 13:48 | Diagnostic Imaging Report ---
PROCEDURE:X-RAY ABDOMEN - KUB COMPARISON:None. INDICATIONS:PREOP KUB FOR RENAL PROCEDURE FINDINGS: One view the abdomen (AP supine). Nonobstructive bowel gas pattern. No evidence of free air. Surgical clips project in the abdomen. Surgical sutures in the hemiabdomen indicate prior bowel surgery. A coiled catheter is partially visualized projected over the right hemiabdomen. Punctate calcifications are projected over the right kidney and measure up to 4 mm. Extensive vascular calcifications Soft tissue calcifications are noted in the pelvis, unchanged. Status post L2-S1 fusion with transpedicular screws. Compression fractures, including at T11, L3, and L4 are better evaluated on prior CT of the abdomen. CONCLUSION: Nonobstructive bowel gas pattern. Calcifications projected over the right kidney measure up to 4 mm. Dictated by: Erik Owens M.D. on 05/29/2018 at 13:52 Electronically approved by: Erik Owens M.D. on 05/29/2018 at 13:52
--- NOTE | 2018-05-29 15:11 | Operative Report ---
DATE OF PROCEDURE: May 29, 2018 PREOPERATIVE DIAGNOSIS: Right kidney stone. POSTOPERATIVE DIAGNOSIS: Right kidney stone. OPERATION PERFORMED: Staged right-sided shockwave lithotripsy. ANESTHESIA: General. ESTIMATED BLOOD LOSS: Minimal. COMPLICATIONS: None. INDICATIONS FOR PROCEDURE: Ms. Farias is a 72-year-old female with symptomatic right-sided kidney stone. She and I had a long discussion regarding the alternatives, risks and benefits including doing nothing, shockwave lithotripsy, ureteroscopy, percutaneous surgery and open surgery. She voiced understanding of the options and alternatives, the risks and the benefits, and elected to proceed with shockwave lithotripsy. PROCEDURE IN DETAIL: After informed consent was obtained, the patient was taken to the operative suite and placed supine on the operating table, underwent general anesthesia by the anesthesia services. The stone was localized in the X, Y, and Z planes. A total of 3000 shocks with a maximum power setting of 6 were delivered to the stone. The patient tolerated the procedure well and was transported to the recovery room in excellent condition with no untoward effects noted. Job#: [id number] EV cc:WAQAR LANE DO
== END | disposition home or self-care (01) ==
LOC: OR 12:29
PROVIDERS: ATTEND Urology
DX: N20.0 Calculus of kidney (principal); D30.00 Benign neoplasm of unspecified kidney; N31.9 Neuromuscular dysfunction of bladder, unspecified; R33.8 Other retention of urine; I49.1 Atrial premature depolarization; M54.9 Dorsalgia, unspecified; F32.9 Major depressive disorder, single episode, unspecified; Z87.891 Personal history of nicotine dependence; Z80.52 Family history of malignant neoplasm of bladder
CPT/HCPCS: 50590; 74018; J0696; J1100; J2001; J2405